=== PATIENT | female | born 1945 | race Caucasian/White ===

== ENCOUNTER → 2017-03-19 | Outpatient (CLI) | payer MEDICARE, BC ==
[2017-03-19 12:23] LABS: AUTOMATED NEUTROPHIL # 5.4 TH/MM3 (1.8-7.7); BASOPHIL # 0.1 TH/MM3 (0-0.2); BASOPHIL % 1.4 % (0.0-2.0); EOSINOPHIL % 0.2 % (0.0-4.0); HEMATOCRIT 40.5 % (35.0-46.0); HEMO FLAGS DIFF FINAL; LYMPH % 25.5 % (9.0-44.0); LYMPHOCYTE # 2.1 TH/MM3 (1.0-4.8); MEAN CELL VOLUME 81.5 FL (80.0-100.0); MEAN CORPUSCULAR HGB CONC 33.1 % (32.0-36.0); MONO % 6.3 % (0.0-8.0); NEUT % 66.6 % (16.0-70.0); PLATELET COUNT 269 TH/MM3 (150-450); RED BLOOD COUNT 4.97 MIL/MM3 (4.00-5.30); RED CELL DISTRIBUTION WIDTH 16.4 % (11.6-17.2); WHITE BLOOD COUNT 8.2 TH/MM3 (4.0-11.0)
--- NOTE | 2017-03-19 20:00 | EKG ---
Date Performed: 03/19/2017 Time Performed: 12:38:44 PTAGE: 71 years EKG: Sinus rhythm NORMAL ECG NO PREVIOUS TRACING DOCTOR: Rica Johnson Interpretating Date/Time 03/19/2017 19:59:22
== END ==
LOC: CLAB 12:01
PROVIDERS: ATTEND Surgery
DX: C50.912 Malignant neoplasm of unspecified site of left female breast (principal)
CPT/HCPCS: 36415; 85025; 93005

== ENCOUNTER → 2017-03-27 | Day surgery (SDC) | payer MEDICARE, BC ==
[~2017-03-27] MED LIST: BUPIVACAINE HCL PF 0.5% 10 ML VIAL ONE; CLINDAMYCIN PHOS 900 MG/6 ML VIAL ONE; ISOSULFAN BLUE 50 MG/5 ML VIAL SQ ONE; LACTATED RINGER'S 1000 ML INJ 1,000 ML ONE; MIDAZOLAM HCL 2 MG/2 ML VIAL ONE; ONDANSETRON HCL 4 MG/2 ML VIAL IV PUSH ONE; PROPOFOL 200 MG/20 ML AMP IV ONE; SODIUM CHLORIDE 0.9% INJ 10 ML ONE
--- NOTE | 2017-03-27 18:48 | TN ---
cc: MAGGIE KEARNEY DATE OF SURGERY 03/27/2017 PRINCIPAL DIAGNOSIS Left breast cancer. PROCEDURE PERFORMED Left breast needle-localized lumpectomy, left breast intraoperative radiation therapy, and left axillary sentinel lymph node biopsy. SURGEON Maggie Kearney MD ANESTHESIA General via LMA device. 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 She desires breast conservation and intraoperative radiation therapy. Her tumor is 5 mm in size and is well differentiated and she is felt to be a good candidate for this approach. FINDINGS AT SURGERY Specimen mammogram did demonstrate an intact wire and the biopsy clip and lesion were within the specimen. Two suspicious less than 1 cm lymph nodes were identified and removed and there was no radioactive count or blue dye uptake in the axilla. The two suspicious nodes were identified as sentinel lymph nodes #1 and #2 and they were sent for permanent pathologic evaluation. PROCEDURE PERFORMED After informed consent was obtained and site verification was performed, the patient was brought to the radiology suite where she underwent needle localization of her lesion at 1 o'clock 2 cm from the nipple as well as peritumoral radionuclide injection. She was then brought to the major operating room where she underwent general anesthesia via LMA device. She was given a single dose of IV clindamycin due to penicillin allergy and sequential compression hose were placed. The left breast and arm were prepped and draped in sterile fashion and she was given 3 mL of half-strength Lymphazurin with a 5-minute massage in the subareolar location. An incision was created in the upper outer left breast after anesthetizing with 0.5% Marcaine plain. Sharp dissection was performed until the wire entry point through the skin was identified and secured with a hemostat. The wire was cut off at the skin with pin cutters and a 2-0 silk transfixion suture was placed at the wire entry point into the breast tissue. Circumferential dissection was then performed with an least a centimeter margin circumferentially around the wire, taking care to try to preserve a spherical configuration to the specimen. The specimen was oriented with one long suture laterally, one short suture superiorly, and two sutures anteriorly. Once the specimen was removed it was inspected and the posterior medial margin appeared close. The specimen was sent to mammography with the findings as noted and the posterior medial margin was sharply reincised with a stitch on the new margin and this was sent as a separate permanent specimen. Hemostasis was easily obtained with electrocautery. The cavity was then evaluated using the __Intrabeam intraoperative radiation applicator and a 4 cm applicator had the best conformance to the cavity. The applicator was placed in the lumpectomy cavity and ultrasound was used to confirm at least 8 mm of skin distance as well as no air pockets superiorly, inferiorly, medially and laterally. The applicator was then removed and a 2-0 Prolene pursestring was placed just deep to the subcutaneous tissue. The applicator was placed into a sterile drape and it was secured to the intraoperative radiation device and a sterile drape was applied over the device. The applicator was then manipulated so that it was again within the lumpectomy cavity without tension. The pursestring was secured and ultrasound again confirmed good conformance superiorly, inferiorly, medially and laterally with 8 mm of distance between the applicator in the skin. Treatment utilizing the applicator then commenced for a total of 25 minutes. The patient was monitored throughout this time by both radiation oncology and anesthesia. Following completion of the intraoperative treatment, the pursestring suture was cut and the applicator was removed from the lumpectomy cavity without difficulty. The radiation device was then removed. Good hemostasis was noted and the breast wound was closed using interrupted 3-0 Vicryl subcutaneous sutures and a 4-0 Monocryl subcuticular suture. Attention was then turned to the left axilla where an incision was anesthetized at the inferior aspect of the left axillary hairline. Both sharp and electrocautery dissection were then performed until the clavipectoral fascia was divided and the level I axilla was entered. There was no blue dye uptake or radioactive uptake but two palpable mid level I lymph nodes were identified and these were circumferentially dissected free from surrounding structures using the harmonic scalpel. These were sent as sentinel lymph nodes #1 and #2. There was no other palpable adenopathy and good hemostasis was noted. Adjacent axillary tissue was dissected free from surrounding structures using the harmonic scalpel and this was sent as a permanent axillary specimen. The wound was then closed using interrupted 3-0 Vicryl subcutaneous suture and 4-0 Monocryl subcuticular suture. Steri-Strips and sterile dressings were applied. The patient tolerated the procedure well with an estimated blood loss of 50 mL and she was extubated in the operating room and brought to the recovery room in good condition. All sponge and needle counts were correct at the conclusion of the case. MD LUI Loera/YOSI /5:56 PM /6:27 PM ANN
--- NOTE | 2017-03-28 11:32 | RADONCOP ---
OPERATIVE REPORT DATE OF SURGERY: 03/27/2017 REFERRING PHYSICIAN: Maggie Osborn PREOPERATIVE DIAGNOSIS: C50.412 - Malignant neoplasm of upper-outer quadrant of left female breast POSTOPERATIVE DIAGNOSIS: C50.412 - Malignant neoplasm of upper-outer quadrant of left female breast PROCEDURE: Intraoperative Radiation Therapy to the . SURGEON: Maggie Osborn ANESTHESIA: General ESTIMATED BLOOD LOSS: Minimal INDICATIONS: Patient is a 71 year old female presenting with invasive breast ca. She has elected to receive targeted intraoperative radiation therapy to the . DESCRIPTION OF PROCEDURE: Patient was taken to the operating room and placed on the table in the supine position. Following induction of general anesthesia, the and arm were prepped and draped sterilely. Ultrasound was performed of the breast to document the location of the breast malignancy. The wound was prepared for intraoperative radiation therapy. Based on the diameter of the cavity, a 4 cm radiation applicator was selected for the delivery of intraoperative radiation therapy. The applicator was then sterilely mounted onto the Intrabeam Stand. Retracting sutures were placed within the skin to be used to retract the skin edges away from the radiation source. The 4 cm Radiation applicator was then sterilely inserted into the wound. The superficial purse-string suture was tied down. Ultrasound was performed of the breast to document conformity of the surgical margins and the distance from the applicator to the skin surface (078 cm). The retracting sutures were then secured and a moistened lap pad was placed on the skin surface, followed by an external radiation barrier. Intraoperative radiotherapy was then initiated by the Radiation Oncologist. Total treatment time was 25 minutes. Upon completion of the intraoperative radiotherapy treatment, the radiation applicator, purse-string sutures and retracting sutures were removed from the wound. The wound was once again irrigated. Hemostasis was confirmed. The patient was then turned back over to the surgeon, Dr. Osborn in stable condition for completion of surgical procedure. Umang Valverde MD 03/28/2017 11:31:25 AM This report was verified and signed electronically [facility] [place] [address] RADIATION ONCOLOGY OPERATIVE REPORT Date: 03/27/2017 Patient Name: Tawny Garcia
--- NOTE | 2017-03-28 11:32 | RADONCENDT ---
END OF TREATMENT SUMMARY PRIMARY REFERRING PHYSICIAN: Maggie Osborn CC: Maggie Osborn DIAGNOSIS: Primary C50.412 - Malignant neoplasm of upper-outer quadrant of left female breast, Diagnosed 03/18/2017 (Active) PRESCRIPTION AND TREATMENT: 2000 cGy to surface of applicator- TREATED PLAN FRACTIONS AND DATES: Course: One fraction delivered on 03/27/2017 TOLERANCE: Patient completed treatment without complications. FOLLOW UP PLAN: Patient to be seen in 3 months. Umang Valverde MD 03/28/2017 11:31:35 AM This report was verified and signed electronically [facility] [address] [place] [address] RADIATION ONCOLOGY END OF TREATMENT SUMMARY Date: 03/27/2017 Patient Name: Tawny Garcia Date of : 1945 Age: 71 Sex: Female
== END | disposition home or self-care (01) ==
LOC: ESDC 11:47
PROVIDERS: ATTEND Surgery
DX: C50.412 Malignant neoplasm of upper-outer quadrant of left female breast (principal)
CPT/HCPCS: 00400; 01610; 19125; 38525; 38792; 77290; 77300; 77334; 77370; 77424; 88305; 88307; J2250; J2405; J3010; J7120; Q9968; 77469